=== PATIENT | male | born 1955 | race Caucasian/White ===

== ENCOUNTER 2023-10-09 15:10 | Outpatient (CLI) | payer MEDICARE | END 2023-10-09 15:11 | disposition home or self-care (01) | LOC: CSHCT 15:10 | PROVIDERS: ATTEND Internal Medicine | DX: Z12.2 Encounter for screening for malignant neoplasm of respiratory organs (principal); Z87.891 Personal history of nicotine dependence | CPT/HCPCS: 71271; 94010; 94726; 94729; 94760 ==

== ENCOUNTER 2025-03-09 14:41 | Outpatient (CLI) | payer MEDICARE | END 2025-03-09 14:42 | disposition home or self-care (01) | LOC: CSHWCC 14:41 | PROVIDERS: ATTEND Nurse Practitioner Family | DX: T81.31XD Disruption of external operation (surgical) wound, not elsewhere classified, subsequent encounter (principal); E08.621 Diabetes mellitus due to underlying condition with foot ulcer | CPT/HCPCS: 11042; 97597 ==